=== PATIENT | female | born 1970 | race Caucasian/White ===

== ENCOUNTER 2018-05-26 14:42 | Observation (INO) ==
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
[2018-05-26] MEDS ORDERED: cefTRIAXone 2,000 MG in Water for inj. (sterile) 20 ML 20 ML IVP ONE (14:59)
[2018-05-26] MEDS ORDERED: Ondansetron 4 MG/2 ML VIAL IVP ONE ×2 (14:59→17:51)
[2018-05-26] MEDS ORDERED: *HR* Morphine 2 MG/ML SYRINGE IVP ONE (14:59)
[2018-05-26] MEDS ORDERED: Tdap (Boostrix) Vaccine 0.5 ML SYRINGE IM ONE (15:03)
[2018-05-26] MEDS ORDERED: *HR* FentaNYL (PF) 100 MCG/2 ML VIAL ONE ×2 (16:01→17:15)
[2018-05-26] MEDS ORDERED: Ondansetron 4 MG/2 ML VIAL ONE ×2 (16:01→17:44)
[2018-05-26] MEDS ORDERED: Lidocaine -MPF 2% 2 ML VIAL ONE (16:01)
[2018-05-26] MEDS ORDERED: *HR* Midazolam HCl 2 MG/2 ML VIAL ONE (16:01)
[2018-05-26] MEDS ORDERED: Dexamethasone 4 MG/ML VIAL ONE ×2 (16:01→17:44)
[2018-05-26] MEDS ORDERED: Bupivacaine/EPI 1:200k 0.5%PF 10 ML VIAL ONE (16:09)
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
[2018-05-26] MEDS ORDERED: Albuterol 2.5 MG/3 ML NEBULIZER IH ONE (16:34)
[2018-05-26] MEDS ORDERED: Albuterol 2.5 MG/3 ML NEBULIZER ONE (16:37)
[2018-05-26] MEDS ORDERED: *HR* Rocuronium Bromide 50 MG/5 ML VIAL ONE (17:23)
[2018-05-26] MEDS ORDERED: Ketorolac 30 MG/ML VIAL ONE (17:44)
[2018-05-26] MEDS ORDERED: Neostigmine Methylsulfate 3 MG/3 ML SYRINGE ONE (17:44)
[2018-05-26] MEDS ORDERED: *HR* Morphine 2 MG/ML SYRINGE IVP PRN (17:51)
[2018-05-26] MEDS ORDERED: *HR* HYDROmorphone (PF) 1 MG/ML SYRINGE IVP PRN (17:51)
[2018-05-26] MEDS ORDERED: *HR* Labetalol 20 MG/4 ML SYRINGE IVP PRN (17:51)
[2018-05-26] MEDS ORDERED: *HR* Promethazine 25 MG/ML VIAL IVP PRN (17:51)
[2018-05-26] MEDS ORDERED: *HR* Morphine 10 MG/ML VIAL ONE (17:56)
[2018-05-26] MEDS ORDERED: Acetaminophen IV 1,000 MG/100 ML INFUS..BTL ONE (18:41)
[2018-05-26] MEDS ORDERED: Acetaminophen 325 MG TABLET PO PRN (19:14)
[2018-05-26] MEDS ORDERED: Naloxone 0.4 MG/ML INJ IVP PRN (19:14)
[2018-05-26] MEDS ORDERED: *HR* HYDROcodone/Acet 5/325 mg TABLET PO PRN (19:14)
[2018-05-26] MEDS ORDERED: Ringers Solution, Lactated 1,000 ML IVC SCH (19:15)
--- NOTE | 2018-05-26 20:06 | Anesthesia Evaluation Post Op ---
Date of Encounter: 05/26/18 Time of Encounter: 19:35 - Vital Signs Vital Signs: Last Vital Signs Temp 97.8 F 05/26/18 19:50 Pulse 87 05/26/18 19:50 Resp 16 05/26/18 19:50 BP 130/87 05/26/18 19:50 Pulse Ox 93 05/26/18 19:50 - Lungs Lungs: Clear Ascult./Percussion - Airway Airway: Non-obstructed - Cardiovascular Regular Rate - Mental Status Mental Status: Alert & Oriented, Answers Appropriately - Pain Pain Scale: 3 - Nausea Vomiting Nausea Vomiting: Not Present - Hydration Hydration: Ice chips - Discharge PostOp Status: Transfer Patient to floor
--- NOTE | 2018-05-26 20:41 | Orthopedic Operative Note ---
Date of procedure: 05/26/18 Procedure: OPERATIVE REPORT DATE OF PROCEDURE: 05/26/2018 SURGEON: Kin Navas MD MULTICULTURAL INTERNSHIP(S): There were no assistants PREOPERATIVE DIAGNOSIS: Right Galeazzi fracture with grade 1 open injury along the ulnar styloid POSTOPERATIVE DIAGNOSIS: Same PROCEDURE: Debridement and irrigation of open injury of the right forearm with open reduction and internal fixation of the right radial shaft and open repair of the right triangular fibrocartilage complex ANESTHESIA: General anesthesia PREOPERATIVE ANTIBIOTICS: 2 g of Ancef ESTIMATED BLOOD LOSS: 1 milliliters TOURNIQUET TIME: 88 minutes at 250 mmHg SPECIMENS: There were no specimens IMPLANTS: Synthes 3.5 mm LC-DCP plate; 2.5 mm Arthrex push lock anchor LOCAL INJECTION: 0.5% bupivacaine with 1:200,000 epinephrine; 10 mL used in total PREOPERATIVE NOTE AND INDICATIONS: This patient is a 48-year-old female who sustained an open injury to her right forearm as described above. Recommendation was for irrigation and debridement of the open injury with anatomic reduction of the radial shaft and assessment of the DRUJ for stability with possible pinning of the DRUJ if needed. The surgical plan was discussed with the patient. The risks, benefits, alternatives, and potential complications of this procedure were discussed with the patient including injury to veins, arteries, nerves, tendons, ligaments, and bone. Also discussed were the risks of infection, bleeding, pain, blood clots, the possible need for a blood transfusion, the possible need for further procedures, heart attack, stroke, and . Additional risks include DRUJ instability and infection. All of this was explained in simple terms, and the patient verbalized understanding and wished to proceed. Consent was given to proceed with surgery. PROCEDURE: The patient was seen in the preoperative holding area where the identify and the consent were confirmed. The right forearm was marked. Final questions were answered. The patient was brought back to the operating room and placed supine on the operating room table. A huddle was performed with the patient and all vital surgical team members confirming patient identity, the correct procedure, and the correct operative site. Gen. anesthesia was administered. The right upper extremity was prepped and draped in the usual sterile fashion. A surgical time out was performed immediately preceding the incision with all personnel in the operating room to confirm patient identity, the correct operative site and extremity, correct radiographic studies, availability of appropriate surgical equipment, and agreement on the planned procedure. The open wound was at the ulnar styloid and a 5 cm incision was made longitudinally where the wound was copiously irrigated. There was no gross contamination. 3 L of saline were used in total. Attention was directed to the volar forearm where Paulino approach was made and dissection proceeded carefully through the brachioradialis and the flexor carpi radialis. The radial artery was protected as was the superficial branch of the radial nerve. The FPL was retracted ulnarly and the fracture was identified. This was anatomically reduced and the definitive plate was placed and fixed proximally and distally as well as with lag screw fixation through the fracture site. X- rays confirmed excellent reduction and placement of the plate. After reduction and fixation of the radius the DRUJ was surprisingly stable through a full range of forearm rotation. The TFCC was identified within the open injury and was amenable to primary reinsertion onto the fovea. Using a 2-0 FiberWire stitch a single horizontal mattress stitch was made and the 2 limbs of the stitch were then placed over the ulnar styloid and impacted into the ulnar head with a 2.5 mm Arthrex push lock anchor with excellent stability. X-rays of the wrist showed good position of the DRUJ. The decision was made not to transfix the DRUJ given the stability. Along the ulnar side the retinaculum was closed with 3-0 Vicryl stitches and the skin was closed with interrupted nylon stitches. On the radial side the wound was closed with interrupted 3-0 Vicryl stitches and 4-0 nylon. A sterile dressing was applied followed by a sugar tong splint. The instrument, sponge, and needle counts were correct after wound closure. POST OPERATIVE PLAN: Weight Bearing: Nonweightbearing to the right upper extremity. DVT Prophylaxis: Lovenox in house Activity: Avoid aggressive activities with right upper extremity Wound Care: Keep the wound clean, dry, and covered Pain Control: [place] Perioperative antibiotic prophylaxis: Will receive 24 hours coverage of Ancef Follow Up: 2 weeks Was there an budget assistant present: No Estimated blood loss (cc): 1
[2018-05-26] MEDS: *HR* OxyCODONE Immed Rel 5 MG TABLET PO PRN (20:58)
[2018-05-27] MEDS: *HR* OxyCODONE Immed Rel 5 MG TABLET PO PRN ×3 (00:53→11:46)
[2018-05-27 01:52] LABS: Basophils % 0.1 %; Hemoglobin 14.2 g/dL (11.5-15.4); Immature Granulocytes % 0.3 % (0-4); Lymphocytes % 6.9 %; Mean Corpuscular HGB Conc 33.8 g/dL (31.6-35.5); Mean Corpuscular Hemoglobin 31.9 pg (28.0-33.3); Mean Corpuscular Volume 94.4 fL (83.0-100.0); Mean Platelet Volume 10.4 fL (9.4-12.4); Monocytes # 0.1 K/mcL (0.0-1.3); Monocytes % 0.8 %; Neutrophils # 13.4 K/mcL (1.6-8.9); Platelet Count 277 K/mcL (140-400); Red Blood Count 4.45 M/mcL (3.82-4.97); Red Cell Distribution Width 13.3 % (11.5-14.5); Segmented Neutrophils % 91.9 %
[2018-05-27 01:55] LABS: BUN/Creatinine Ratio 14 (6-26); Blood Urea Nitrogen 10 mg/dL (6-20); Calcium 8.6 mg/dL (8.6-10.3); Carbon Dioxide 20 mEq/L (23-29); Chloride 111 mEq/L (98-107); Glucose 182 mg/dL (70-105); Osmolality,Calculated 292 (280-300); Potassium 4.6 mEq/L (3.5-5.1); Sodium 139 mEq/L (136-145); eGFR For African Americans > 60 (> 60); eGFR For Non-African Americans > 60 (> 60)
[2018-05-27] MEDS ORDERED: *HR* Enoxaparin 40 MG/0.4 ML SYRINGE SQ SCH (06:00)
[2018-05-27] MEDS ORDERED: Ondansetron 4 MG/2 ML VIAL IVP PRN (06:12)
--- NOTE | 2018-05-27 06:40 | Orthopedics Progress Note ---
Date of Encounter: 05/27/18 Time of Encounter: 06:37 - Assessment and Plan (1) Gia'marylin fracture Current Visit: Yes Status: Acute Qualifiers: Qualified Code(s): S52.371B - Gia's fracture of right radius, initial encounter for open fracture type I or II Subjective Interval history: S: Resting in bed comfortably. Her pain has been very well-controlled. O: Afebrile on the vital signs are stable Right upper extremity and sugar tong splint Fingers are freely mobile, sensate, and well-perfused A: Postoperative day 1 after open Gia fracture. She is post open reduction and internal fixation of the radial shaft as well as open TFCC repair P: My recommendation is to complete 24 hours of antibiotics which she will today At that point we will discharge her Nonweightbearing to the right upper extremity Ambulation for DVT prophylaxis Follow-up for a wound evaluation on in the office. Objective Vital signs: Vital Signs Temp Pulse Resp BP Pulse Ox 05/27/18 03:24 98.3 F 61 18 105/67 98 05/26/18 23:00 98.7 F 90 16 126/86 96 05/26/18 22:44 98.4 F 70 18 132/76 96 05/26/18 22:00 98.8 F 89 16 130/85 2 05/26/18 21:00 98.6 F 80 16 136/86 96 05/26/18 20:30 98.5 F 78 16 140/91 95 05/26/18 20:00 97.8 F 78 16 137/88 95 05/26/18 19:50 97.8 F 87 16 130/87 93 05/26/18 19:40 97.8 F 87 16 142/87 93 05/26/18 19:30 97.8 F 77 18 134/87 92 05/26/18 19:20 97.7 F 92 18 127/90 93 05/26/18 19:10 97.5 F L 87 16 140/82 94 Intake and Output 05/26/18 05/26/18 05/27/18 15:59 23:59 07:59 Intake Total 0 / 0 0 / 0 Output Total 301 / 301 0 / 0 Balance -301 / -301 0 / 0 Intake: Oral 0 / 0 0 / 0 Output: Urine 300 / 300 0 / 0 Estimated Blood Loss - Labs CBC & BMP: 05/27/18 01:17 05/27/18 01:17 Labs: Abnormal lab results WBC 14.6 K/mcL (4.3-11.1) H 05/27/18 01:17 Neutrophils # 13.4 K/mcL (1.6-8.9) H 05/27/18 01:17 Chloride 111 mEq/L (98-107) H 05/27/18 01:17 Carbon Dioxide 20 mEq/L (23-29) L 05/27/18 01:17 Glucose 182 mg/dL (70-105) H 05/27/18 01:17 - VTE Documentation of Mechanical Device: Venous foot pump, device Consult Discharge Plan - Plan Additional Instructions: DISCHARGE INSTRUCTIONS Dr. Navas DISCHARGE DIAGNOSIS/PROCEDURE Debridement and irrigation of open wound with open reduction and internal fixation of the radial shaft and open TFCC repair ACTIVITY: No pushing, pulling, lifting with right upper extremity. WOUND CARE: Keep dressing and splint clean, dry, and intact. DRIVING: Do not drive DIET: Begin with clear liquids, and then increase your diet as you feel comfortable. MEDICATIONS: Pain: Percocet Your prescribed pain medication contains Tylenol. You must be careful not to exceed 4,000 mg (4 g) of Tylenol (or generic equivalent), from all sources, within a single 24-hour period. Gradually wean to Tylenol (or generic equivalent) for pain. Over the counter ibuprofen can be taken as directed in addition to your prescribed pain medication unless otherwise stated by your doctor. DO NOT TAKE IBUPROFEN IF YOU HAVE A HISTORY OF STOMACH ULCERS OR ARE TAKING BLOOD THINNERS LIKE COUMADIN OR PLAVIX. FOLLOW-UP Follow-up with Dr. Navas at the office this May 29, for a post operative evaluation. Call the office at [phone] to schedule or confirm your appointment. WHEN TO CALL THE DOCTOR OR WHEN TO SEEK CARE BEFORE YOUR APPOINTMENT 1. Excess swelling or increased numbness not made better by elevating the hand and moving the fingers. 2. Uncontrolled pain. 3. A color change in your hand or fingers. 4. Worsening redness or drainage. 5. Fevers over 100.5 degrees F or 38.1 degrees C. 6. Any symptoms that bring concern to you. Referrals: NONE,PCP [Primary Care Provider] - Dudley Thakkar MD [Family Provider] -
[2018-05-27 06:41] VITALS: BP 104/69
--- NOTE | 2018-05-27 06:43 | Discharge Summary ---
Date of Encounter: 05/27/18 Time of Encounter: 06:41 - Discharge Diagnosis (1) Galeazzi's fracture Priority: Primary Status: Acute Qualifiers: Qualified Code(s): S52.371B - Galfernyi's fracture of right radius, initial encounter for open fracture type I or II - Hospital Course Hospital course: Ms. Lala is a 48 year old female. She is admitted after having an open Galeazzi fracture. She underwent surgical stabilization after debridement and irrigation of her wounds. She will complete 24 hours of antibiotics today with her last dose. Her pain has been very well-controlled. She is orthopedically stable for discharge when she receives her last dose of antibiotics today. I will see her in the office on for a wound evaluation. - Time Spent with Patient Total time spent providing and/or coordinating discharge services: - Discharge Medications Prescriptions: Oxycodone HCl/Acetaminophen [Percocet 5-325 mg Tablet] 1 each PO Q6H PRN 7 Days #28 tablet PRN Reason: Pain Home Medications: Cider Vinegar [Apple Cider Vinegar] 600 mg PO DAILY 05/26/18 [History] Turmeric Root Extract [Turmeric] 500 mg PO DAILY 05/26/18 [History] Oxycodone HCl/Acetaminophen [Percocet 5-325 mg Tablet] 1 each PO Q6H PRN 7 Days #28 tablet 05/27/18 [Rx] Allergies/Adverse Reactions: 3 Allergy/AdvReac Type Severity Reaction Status Date / Time No Known Allergies Allergy Verified 05/26/18 14:58 Date of admission: 05/26/18 17:15 Primary care physician: PCP NONE - VTE Documentation of Mechanical Device: Venous foot pump, device Labs on day of discharge: Labs from last 24 hours 05/27/18 05/27/18 01:17 01:17 WBC 14.6 H RBC 4.45 Hgb 14.2 Hct 42.0 MCV 94.4 MCH 31.9 MCHC 33.8 RDW 13.3 Plt Count 277 MPV 10.4 Immature Gran % 0.3 Seg Neutrophils % 91.9 Lymphocytes % 6.9 Monocytes % 0.8 Eosinophils % 0.0 Basophils % 0.1 Neutrophils # 13.4 H Lymphocytes # 1.0 Monocytes # 0.1 Eosinophils # 0.0 Basophils # 0.0 Sodium 139 Potassium 4.6 Chloride 111 H Carbon Dioxide 20 L BUN 10 Creatinine 0.70 Est GFR ( Amer) > 60 Est GFR (Non-Af Amer) > 60 BUN/Creatinine Ratio 14 Glucose 182 H Calculated Osmolality 292 Calcium 8.6 - Impressions ITS Impressions Fluoroscopy 05/26/18 17:20 IMPRESSION: Intraprocedural fluoroscopic spot images as above. See separate procedure report for more information. D/ / Ye Valle MD / Ye Valle MD Interpreting Provider: Ye Valle MD Wrist X-Ray 05/26/18 17:20 IMPRESSION: Intraprocedural fluoroscopic spot images as above. See separate procedure report for more information. D/ / Ye Valle MD / Ye Valle MD Interpreting Provider: Ye Valle MD Wrist X-Ray 05/26/18 19:39 IMPRESSION: 1. Status post ORIF of the right radius with no evidence for immediate postoperative complication. D/ / Junior Dean MD / Junior Dean MD Interpreting Provider: Junior Dean MD - Patient Status Disposition: Home, Self-Care Condition: Good - Discharge Instructions Follow Up With: Dudley Thakkar MD [Family Provider] - NONE,PCP [Primary Care Provider] - Additional Instructions: DISCHARGE INSTRUCTIONS Dr. Navas DISCHARGE DIAGNOSIS/PROCEDURE Debridement and irrigation of open wound with open reduction and internal fixation of the radial shaft and open TFCC repair ACTIVITY: No pushing, pulling, lifting with right upper extremity. WOUND CARE: Keep dressing and splint clean, dry, and intact. DRIVING: Do not drive DIET: Begin with clear liquids, and then increase your diet as you feel comfortable. MEDICATIONS: Pain: Percocet Your prescribed pain medication contains Tylenol. You must be careful not to exceed 4,000 mg (4 g) of Tylenol (or generic equivalent), from all sources, within a single 24-hour period. Gradually wean to Tylenol (or generic equivalent) for pain. Over the counter ibuprofen can be taken as directed in addition to your prescribed pain medication unless otherwise stated by your doctor. DO NOT TAKE IBUPROFEN IF YOU HAVE A HISTORY OF STOMACH ULCERS OR ARE TAKING BLOOD THINNERS LIKE COUMADIN OR PLAVIX. FOLLOW-UP Follow-up with Dr. Navas at the office this May 29, for a post operative evaluation. Call the office at [phone] to schedule or confirm your appointment. WHEN TO CALL THE DOCTOR OR WHEN TO SEEK CARE BEFORE YOUR APPOINTMENT 1. Excess swelling or increased numbness not made better by elevating the hand and moving the fingers. 2. Uncontrolled pain. 3. A color change in your hand or fingers. 4. Worsening redness or drainage. 5. Fevers over 100.5 degrees F or 38.1 degrees C. 6. Any symptoms that bring concern to you.
== END 2018-05-27 12:25 | disposition home or self-care (01) ==
LOC: EMEROO 14:42 → 3NENU 14:42
PROVIDERS: ADMIT Orthopaedic Surgery Hand Surgery; ATTEND Orthopaedic Surgery Hand Surgery